=== PATIENT | female | born 1990 | race Caucasian/White ===

== ENCOUNTER 2017-09-05 13:56 | Emergency (ER) | payer BC ==
[~2017-09-05] VITALS: Ht 175.3 cm; Wt 57.0 kg
[2017-09-05 14:05] VITALS: BP 110/73
[2017-09-05] MEDS ORDERED: L.E.T SOLUTION TP ONE ×2 (14:53→15:00)
[2017-09-05] MEDS ORDERED: CEPHALEXIN 500 MG CAPSULE ONE (14:53)
[2017-09-05] MEDS ORDERED: KETOROLAC 30 MG/1 ML IM ONE (15:00)
[2017-09-05] MEDS ORDERED: KETOROLAC 30 MG/1 ML ONE (15:00)
[2017-09-05] MEDS ORDERED: CEPHALEXIN 500 MG CAPSULE PO ONE (15:00)
== END 2017-09-05 15:50 | disposition home or self-care (01) ==
LOC: ED 14:23
DX: S81.012A Laceration without foreign body, left knee, initial encounter (principal); W19.XXXA Unspecified fall, initial encounter; Y93.89 Activity, other specified; Y92.89 Other specified places as the place of occurrence of the external cause; Y99.8 Other external cause status
CPT/HCPCS: 96372; 99283; J1885

== ENCOUNTER 2019-07-22 13:31 | Emergency (ER) | payer SELFPAY ==
[~2019-07-22] VITALS: Ht 175.3 cm; Wt 55.7 kg
--- NOTE | 2019-07-22 13:45 | NUR ---
PT WAS AMBULATORY TO ED ROOM 7 W/ STEADY GAIT.
--- NOTE | 2019-07-22 14:31 | NUR ---
PT A&OX4, RESP EVEN & UNLABORED, SPEECH CLEAR. STATES SHE NOTICED BRUISING TO [place] YESTERDAY. HAS EXPANDED TO POSTERIOR THIGHS. DENIES TRAUMA, FALLS, ATHLETIC ACTIVITIES.
[2019-07-22 14:32] LABS: BASOPHILS # (AUTO) 0.02 x10^3/uL (0-0.1); BASOPHILS % (AUTO) 1 % (0-1); EOSINOPHILS # (AUTO) 0.01 x10^3/uL (0-0.4); EOSINOPHILS % (AUTO) 0 % (1-7); LYMPHOCYTES # (AUTO) 1.15 x10^3/uL (1-3.4); LYMPHOCYTES % (AUTO) 24 % (22-44); MD NO; MEAN CORPUSCULAR HEMOGLOBIN 31.4 pg (27.0-34.8); MEAN CORPUSCULAR VOLUME 92.4 fL (80-100); MEAN PLATELET VOLUME 7.8 fL (7.4-10.4); MONOCYTES # (AUTO) 0.42 x10^3/uL (0.2-0.8); MONOCYTES % (AUTO) 9 % (2-9); NEUTROPHILS % (AUTO) 67 % (42-75); PLATELET COUNT 226 x10^3/uL (130-400); RED BLOOD COUNT 4.91 x10^6/uL (3.82-5.3); RED CELL DISTRIBUTION WIDTH 13.1 % (9.6-15.2)
[2019-07-22] MEDS ORDERED: IUD (14:35)
[2019-07-22 14:41] VITALS: BP 119/79
[2019-07-22 14:45] LABS: ALBUMIN 4.4 g/dL (3.4-5.0); ANION GAP 11 mmol/L (5-15); CALCIUM 8.8 mg/dL (8.5-10.1); CHLORIDE 106 mmol/L (98-107)
[2019-07-22 14:48] LABS: INTERNATIONAL NORMALIZED RATIO 1.12 (0.93-1.1); PROTHROMBIN TIME 11.9 Seconds (9.6-11.5)
[2019-07-22 14:51] LABS: ALANINE AMINOTRANSFERASE 107 U/L (12-78); ALKALINE PHOSPHATASE 116 U/L (45-117); BILIRUBIN,TOTAL 1.1 mg/dL (0.2-1.0); CREATININE 0.82 mg/dL (0.55-1.02); TOTAL PROTEIN 7.7 g/dL (6.4-8.2)
--- NOTE | 2019-07-22 15:19 | NUR ---
DR CAM AT TO DISCUSS POC
== END 2019-07-22 15:38 | disposition home or self-care (01) ==
LOC: ED 15:11
DX: S40.022A Contusion of left upper arm, initial encounter (principal); S40.021A Contusion of right upper arm, initial encounter; S80.12XA Contusion of left lower leg, initial encounter; S80.11XA Contusion of right lower leg, initial encounter; N93.9 Abnormal uterine and vaginal bleeding, unspecified; X58.XXXA Exposure to other specified factors, initial encounter; Y93.89 Activity, other specified; Y92.89 Other specified places as the place of occurrence of the external cause; Y99.8 Other external cause status
CPT/HCPCS: 36415; 80053; 84703; 85025; 85610; 85730; 99283